=== PATIENT | female | born 1990 | race Caucasian/White ===

== ENCOUNTER 2020-03-02 16:08 | Emergency (ER) | payer BC, SELFPAY ==
--- NOTE | ~2020-03-02 | XR_ITS ---
XR elbow RT min 3V DATE: 03/02/2020 16:32 INDICATION: Right elbow pain. History of elbow surgery TECHNIQUE: 4 views COMPARISON: None FINDINGS: There are 3 plates and screws along the distal humerus and a plate with screws along the do rsal aspect of the olecranon process and proximal ulnar shaft. There is a transverse screw through th e distal humerus. No displaced hardware is noted. There is osteoarthritic spurring of the radial head which simulates the appearance of radial neck fra cture in at least one view. If there is strong clinical concern for fracture, additional radiographic views may be helpful. No apparent recent fracture or dislocation or elbow joint effusion is noted. 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
[2020-03-02 16:16] VITALS: BP 130/82; PULSE 77; RESP 16; TEMP 36.2; O2SAT 100
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
== END 2020-03-02 16:56 | disposition home or self-care (01) ==
PROVIDERS: Emergency Provider Nurse Practitioner Family
DX: L03.113 Cellulitis of right upper limb (principal)
CPT/HCPCS: 73080; 99213; G0463

== ENCOUNTER 2020-12-13 19:37 | Emergency (ER) | payer BC, SELFPAY ==
[2020-12-13 19:57] VITALS: BP 90/64; PULSE 60; RESP 16; TEMP 36.6; O2SAT 100
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
== END 2020-12-13 20:39 | disposition home or self-care (01) ==
PROVIDERS: Emergency Provider Registered Nurse
DX: L03.113 Cellulitis of right upper limb (principal); F17.210 Nicotine dependence, cigarettes, uncomplicated
CPT/HCPCS: 99213; G0463

== ENCOUNTER 2021-02-24 13:36 | Emergency (ER) | payer BC, SELFPAY ==
[2021-02-24 13:45] VITALS: BP 112/68; PULSE 63; RESP 16; TEMP 36.7; O2SAT 99
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
== END 2021-02-24 14:25 | disposition home or self-care (01) ==
PROVIDERS: Emergency Provider Nurse Practitioner
DX: S51.001A Unspecified open wound of right elbow, initial encounter (principal); X58.XXXA Exposure to other specified factors, initial encounter
CPT/HCPCS: 99213; G0463

== ENCOUNTER 2021-02-24 14:51 | Emergency (ER) | payer BC, SELFPAY ==
[2021-02-24 15:15] VITALS: BP 104/57; PULSE 72; RESP 16; TEMP 36.4; O2SAT 100
[2021-02-24 16:41] VITALS: BP 109/72; PULSE 65; RESP 18; TEMP 36.4; O2SAT 97
--- NOTE | 2021-02-24 19:32 | PC.NURSE ---
no answer x2 at triage
== END 2021-02-24 19:52 | disposition left against medical advice (07) ==
LOC: ANHED 19:47
DX: Z53.21 Procedure and treatment not carried out due to patient leaving prior to being seen by health care provider (principal)
CPT/HCPCS: 99199

== ENCOUNTER 2024-11-10 10:01 | Emergency (ER) | payer BC, SELFPAY ==
[2024-11-10] VITALS (17 sets, daily range): BP systolic 109–165; BP diastolic 81–100; PULSE 36–60; RESP 16–27; TEMP 36.3–36.6; O2SAT 93–99
--- NOTE | ~2024-11-10 | CT_ITS ---
EXAM: CT brain wo con - 11/10/2024 13:20 CDT History: 34 years old Female with AMS, vert nystagmus COMPARISON: 10/08/03 PROCEDURE: CT of the head without contrast. Axial, sagittal and coronal reformatted planes were fiona luated. Automatic exposure control was used for this study. FINDINGS: BRAIN PARENCHYMA: No acute hemorrhage. No mass effect or herniation. Solorio-white matter differentiatio n is maintained. Normal appearance of cortex. VENTRICLES/ EXTRA-AXIAL SPACES: No hydrocephalus or extra-axial fluid collection. EXTRACRANIAL STRUCTURES: No calvarial fracture. IMPRESSION: No evidence for acute intracranial hemorrhage or calvarial fracture. Reviewed, dictated and finalized at location A.
--- NOTE | ~2024-11-10 | XR_ITS ---
EXAMINATION: XR chest 1V portable DATE: 11/10/2024 10:48 INDICATION: Altered mental status TECHNIQUE: frontal view of the chest was obtained. COMPARISON: Chest radiograph dated 09/02/2007 FINDINGS: There is elevation of the left hemidiaphragm. No focal airspace opacities, pulmonary edema, pleural e ffusion or pneumothorax. Heart size is normal. Likely biopsy marker clip projecting over the left eldon ast. Old healed fracture deformity at the distal right humerus with residual screw tracks from previo us removed internal fixation. IMPRESSION: 1. Elevation of the left hemidiaphragm. No other acute cardiopulmonary disease. Reviewed, dictated and finalized at location A.
--- NOTE | ~2024-11-10 | CT_ITS ---
CT chest abdomen pelvis w con Ordering provider: Pancho Shaikh MD History: 34 years Female with . IV drug user, AMS, Toxic appearing . Comparison: None. Technique: CT chest with IV contrast. CT abdomen and pelvis CT abdomen and pelvis with IV and with or al contrast. Radiation reduction technique utilized The dose-length product was 247.36 mGy-cm. FINDINGS: CHEST: --VISUALIZED THORACIC INLET: Normal. --MEDIASTINUM: Aorta/coronary arteries: The thoracic aorta is normal. Heart/other: The heart is not enlarged. Slight dilatation of the right ventricle is noted. Clinical correlation advised. Lymph nodes: No mediastinal or hilar adenopathy. --LUNGS: No pulmonary nodules or masses. No infiltrates or effusions. No pneumothorax. --MUSCULOSKELETAL: Soft tissues: The superficial soft tissues are normal. Bones: Normal spine. No suspicious bony lytic or sclerotic lesions. ABDOMEN/PELVIS: --MUSCULOSKELETAL: Bones: Normal spine. No suspicious bony lytic or sclerotic lesions. Superficial soft tissues: The superficial soft tissues are normal. --UPPER ABDOMINAL ORGANS: Liver: Fat infiltration. Reflux of contrast seen in the inferior vena cava suggestive of right-sided cardiac failure. Clinical correlation advised. Gallbladder: Cholelithiasis. Spleen: Normal. Enlarged adjacent splenule is noted. Possible embolization. Postoperative changes is seen in the area of the spleen. Stomach/duodenum: Normal. Pancreas: Normal. Adrenals: Normal. Kidneys: Normal. --PELVIC ORGANS: The bladder is normal. No bladder stones. --BOWEL AND MESENTERY: Colon: No evidence of diverticulitis. Slight thickening of the wall of the sigmoid colon is seen whic h may indicate colitis. Clinical correlation advised. Appendix is not demonstrated.. Small Bowel: Normal. No obstruction. Peritoneum/mesentery: No free air. Minimal Free fluid seen in the right paracolic gutter and in the p margret. No mesenteric lymphadenopathy. --RETROPERITONEUM: Normal aorta. No retroperitoneal lymphadenopathy. IMPRESSION: CHEST: 1. No acute cardiopulmonary pathology. 2. Slight dilatation of the right ventricle. ABDOMEN/PELVIS: 1. No evidence of appendicitis, diverticulitis or intestinal obstruction. Slightly thickened wall of the colon which may indicate colitis. 2. Cholelithiasis. 3. Fat infiltration of the liver. 4. Loss of contrast in the inferior vena cava and hepatic veins suggestive of right-sided failure. 5. Minimal fluid in the right paracolic gutter and in the pelvis Reviewed, dictated and finalized at location A. IMPRESSION: CHEST: 1. No acute cardiopulmonary pathology. 2. Slight dilatation of the right ventricle. ABDOMEN/PELVIS: 1. No evidence of appendicitis, diverticulitis or intestinal obstruction. Slig htly thickened wall of the colon which may indicate colitis. 2. Cholelithiasis. 3. Fat infiltration of the liver. 4. Loss of contrast in the inferior vena cava and hepatic veins suggestive of right-sided failure. 5. Minimal fluid in the right paracolic gutter and in the pelvis
--- NOTE | 2024-11-10 10:15 | ECG_ITS ---
Test Date: 2024-11-10 10:24:01 Measurements Intervals [place] Rate: 45 P: -22 [place]: 160 QRS: 69 QRSD: 82 T: 83 QT: 488 QTc: 423 Interpretive Statements SINUS BRADYCARDIA WITH SINUS ARRHYTHMIA PROMINENT U WAVES- CONSIDER HYPOKALEMIA BASELINE ARTIFACT- I, II, III, AVR, AVL, AVF, V1-V6 ABNORMAL ECG No previous ECG available for comparison Electronically Signed On 11-10-2024 10:47:19 CDT by Torrey Salguero D.O.
[2024-11-10] MEDS: SODIUM CHLORIDE 0.9% IV 1,000 ML 999 ML IV CONT (10:32)
[2024-11-10] MEDS: NALOXONE HCL INJ 2 MG/2 ML AMP (10:32)
[2024-11-10 10:42] LABS: Fractional Inspired Oxygen 21 %; HCO3 VBG 21.4 mEq/l (24.0-30.0); PO2 VBG 38.9 mmHg (35.0-45.0)
[2024-11-10 10:45] LABS: Device ROOM AIR; PCO2 VBG 24.7 mmHg (42.0-48.0); pH VBG 7.555 (7.300-7.400)
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
[2024-11-10 11:07] LABS: Basophils Percent Auto 0.4 % (0.2-1.2); Eosinophils Absolute Auto 0.1 K/mm3 (0-0.3); Eosinophils Percent Auto 1.5 % (0-4.4); Hematocrit 47.3 % (37.0-47.0); Hemoglobin 15.4 g/dL (12.0-15.0); Immature Granulocyte Absolute 0.02 K/mm3 (0.00-0.031); Immature Granulocyte Percent A 0.3 % (0-0.5); Lymphocytes Absolute Auto 2.26 K/mm3 (0.9-3.2); Lymphocytes Percent Auto 30.4 % (18.3-44.2); Mean Corpuscular HGB Conc 32.6 g/dl (32-36); Mean Corpuscular Hemoglobin 27.9 pg (26-34); Mean Corpuscular Volume 85.8 fl (80-100); Monocytes Absolute Auto 0.3 K/mm3 (0.1-0.6); Monocytes Percent Auto 4.4 % (2.6-8.5); Neutrophils Absolute Auto 4.7 K/mm3 (1.3-6.7); Platelet Count Result 248 k/mm3 (150-375); Red Blood Count 5.51 M/mm3 (4.2-5.4); Red Cell Distribution Width 14.8 % (11.5-14.5); White Blood Count 7.4 K/mm3 (4.5-10.0)
[2024-11-10 11:08] LABS: Add Urine Microscopic? NO; Appearance Urine Clear (Clear); Bilirubin Urine Negative (Negative); Blood Urine Negative (Negative); Color Urine Yellow (Yellow); Glucose Urine UA Negative (Negative); Ketones Urine Negative (Negative); Leukocyte Esterase Ur Negative LEU/UL (Negative); Nitrate Urine Negative (Negative); Protein Urine Negative (Negative); Specific Grav Ur 1.011 (1.001-1.035); pH Urine 7.5 (5.0-9.0)
[2024-11-10 11:11] LABS: Pregnancy On Board Control Positive; Urine Pregnancy Test Negative
[2024-11-10 11:16] LABS: Lactic Acid Reflex 1.8 mmol/L (0.7-2.0)
[2024-11-10 11:16] LABS: Glucose Point of Care 184 mg/dl (65-105)
[2024-11-10 11:25] LABS: Partial Thromboplastin Time 29.1 Seconds (22.3-36.8); Prothrombin Time 13.6 Seconds (11.1-14.7)
[2024-11-10 11:31] LABS: Amphetamine Screen Urine Negative (Negative); Barbiturate Screen Urine Negative (Negative); Benzodiazepines Screen Urine Negative (Negative); Cannabinoid Screen Urine Negative (Negative); Cocaine Screen Urine Positive (Negative); Methadone Screen Urine Negative (Negative); Opiate Screen Urine Negative (Negative); Phencyclidine Screen Urine Negative (Negative)
--- NOTE | 2024-11-10 11:33 | ECG_ITS ---
Test Date: 2024-11-10 11:39:16 Measurements Intervals [place] Rate: 42 P: 17 WI: 160 QRS: 63 QRSD: 86 T: 41 QT: 517 QTc: 433 Interpretive Statements SINUS BRADYCARDIA MODERATE T-WAVE ABNORMALITY, CONSIDER ANTERIOR ISCHEMIA PROMINENT U WAVES- CONSIDER HYPOKALEMIA BASELINE WANDER- II, III, AVR, AVL, AVF, V4-V6 ABNORMAL ECG Compared to ECG 11/10/2024 10:24:01 NO SIGNIFICANT CHANGE Electronically Signed On 11-10-2024 12:25:53 CDT by Torrey Salguero D.O.
[2024-11-10 11:37] LABS: Acetaminophen < 10 ug/mL (10-30); Ethanol < 10 mg/dL (<10); Salicylate < 1.0 mg/dL (2-20)
[2024-11-10 11:40] LABS: Alanine Aminotransferase 140 U/L (6-35); Albumin Level 4.6 g/dL (3.5-5.1); Alkaline Phosphatase 71 U/L (38-126); Aspartate Amino Transferase 143 U/L (14-36); Bilirubin,Total 0.8 mg/dL (0.2-1.3); Blood Urea Nitrogen 15 mg/dL (7-17); Calcium 9.7 mg/dL (8.4-10.2); Chloride 104 mmol/L (98-107); Creatine Kinase 60 U/L (30-135); Estimated CRCL calculation 65 ml/min; Estimated Glomerular Filt Rate > 60; Glucose 229 mg/dL (65-110); Lipase 81 U/L (23-300); Phosphorus 2.9 mg/dL (2.5-4.5); Potassium 5.7 mmol/L (3.4-5.0); Sodium 137 mmol/L (137-145); Total Protein 8.6 g/dL (6.3-8.2)
[2024-11-10 11:42] LABS: Influenza A QL RT-PCR Negative (Negative); Influenza B QL RT-PCR Negative (Negative); RSV RNA, RT-PCR Negative (Negative); SARS-CoV-2 RNA PCR Negative (Negative)
[2024-11-10] MEDS: CALCIUM GLUCONATE 1,000 MG/10 ML VIAL 2000 MG IV PUSH (12:11)
[2024-11-10] MEDS: DEXTROSE 50% 25 GM/50 ML SYRINGE IV PUSH (12:11)
[2024-11-10] MEDS: SODIUM BICARBONATE 8.4% 50 MEQ/50 ML SYRINGE IV PUSH (12:11)
[2024-11-10 12:13] LABS: Anion Gap 15 mmol/L (4-12); Carbon Dioxide 18 mmol/L (22-30); Magnesium 1.9 mg/dL (1.6-2.3)
[2024-11-10] MEDS: INSULIN HUMAN REGULAR (*BKC) 100 UNITS/ML 10 UNITS IV PUSH (12:16)
[2024-11-10 13:20] LABS: Troponin I < 0.012 ng/mL (0.000-0.034)
[2024-11-10 13:55] LABS: Troponin I < 0.012 ng/mL (0.000-0.034)
[2024-11-10 16:14] LABS: Free T4 Free Thyroxine Reflex 1.59 ng/dL (0.78-2.19)
[2024-11-10 17:18] LABS: Total Triiodothyronine (T3) 1.56 NG/ML (0.82-1.58)
[2024-11-10] MEDS: BUPRENORPHINE HCL (*CRX) 2 MG SUBLINGUAL TABLET 4 MG SUBLINGUAL (18:09)
[2024-11-10 18:11] LABS: Anion Gap 13 mmol/L (4-12); Blood Urea Nitrogen 16 mg/dL (7-17); Carbon Dioxide 19 mmol/L (22-30); Chloride 109 mmol/L (98-107); Estimated CRCL calculation 71 ml/min; Estimated Glomerular Filt Rate > 60; Glucose 97 mg/dL (65-110); Potassium 4.1 mmol/L (3.4-5.0); Sodium 141 mmol/L (137-145)
--- NOTE | 2024-11-10 19:01 | PC.NURSE ---
Patient escorted to waiting room and shown the phone so she can call a ride
== END 2024-11-10 19:02 | disposition home or self-care (01) ==
PROVIDERS: Emergency Provider Emergency Medicine
DX: T50.901A Poisoning by unspecified drugs, medicaments and biological substances, accidental (unintentional), initial encounter (principal); F11.10 Opioid abuse, uncomplicated; F17.210 Nicotine dependence, cigarettes, uncomplicated; Z20.822 Contact with and (suspected) exposure to COVID-19
CPT/HCPCS: 36415; 70450; 71045; 71260; 74177; 80048; 80053; 80143; 80179; 80307; 81003; 81025; 82077; 82550; 82803; 82948; 83605; 83690; 83735; 84100; 84439; 84443; 84480; 84484; 85025; 85610; 85730; 86850; 86900; 86901; 87040; 87637; 93005; 96361; 96374; 96375; 99284; A9270; J0612; J1815; J2060; J2310; J7030; Q9967